=== PATIENT | male | born 1995 | race Caucasian/White ===

== ENCOUNTER 2017-10-16 01:29 | Emergency (ER) | payer BC ==
[~2017-10-16] VITALS: Ht 182.9 cm; Wt 82.1 kg
[2017-10-16 01:33] VITALS: BP 139/68
--- NOTE | 2017-10-16 01:55 | NUR ---
AMBULATED TO ER BED 2
--- NOTE | 2017-10-16 02:00 | NUR ---
Patient being evaluated by physician at bedside.
[2017-10-16] MEDS ORDERED: KETOROLAC 30 MG/ML VIAL IVP ONE (02:05)
[2017-10-16] MEDS ORDERED: NACL 0.9% 500 ML IV ONE (02:05)
[2017-10-16] MEDS ORDERED: DIAZEPAM PFS 10 MG/2 ML SYR IVP ONE (02:05)
[2017-10-16] MEDS ORDERED: ONDANSETRON 4 MG/2 ML VIAL IVP ONE (02:05)
--- NOTE | 2017-10-16 02:05 | NUR ---
PT BIB FAMILY C/O ABD CRAMPING WITH VOMITING SINCE 2099, APPROXIMATELY 9 EPISODES, REPORTS BLOOD IN EMESIS, EPIGASTRIC ABD PAIN, INTERMITTENT. PT DENIOES ANY TRAUMA. PT AMB W/O ASST TO BRP UA DONE, LAB AT BEDSIDE BLOOD AND UA SENT. SKIN IS INTACT, PINK/WARM/DRY; AAOX4, PERRL, WITH EVEN AND STEADY GAIT; LUNGS CLEAR BL, BREATHING UNLABORED; HR EVEN AND REGULAR, BL PERIPHERAL PULSES PRESENT; BS ACTIVE X4, NO TENDERNESS TO PALPATION. PT DENIES ANY FEVER, CP, SOB, OR COUGH AT THIS TIME; PT STATES 6/10 PAIN AT THIS TIME; VSS; PATIENT POSITIONED FOR COMFORT; HOB ELEVATED; BEDRAILS UP X2; BED DOWN.
[2017-10-16 02:21] LABS: HEMATOCRIT 47.8 % (36-52); MEAN CORPUSCULAR HEMOGLOBIN 29 pg (27-31); MEAN CORPUSCULAR HGB CONC 33 g/dL (33-37); MEAN CORPUSCULAR VOLUME 88 fL (80-94); PLATELET COUNT (AUTO) 277 K/uL (140-450); RED BLOOD CELL COUNT(AUTO) 5.45 MIL/uL (4.20-6.10); RED CELL DISTRIBUTION WIDTH 12.3 % (11.6-13.7)
[2017-10-16 02:35] LABS: ANION GAP 12.7 (8-16); CREATININE 1.2 mg/dL (0.7-1.3); POTASSIUM 3.7 mmol/L (3.5-5.1); WHITE BLOOD COUNT (AUTO) 17.3 K/uL (4.8-10.8)
[2017-10-16 02:37] LABS: EOSINOPHILS % (MANUAL) 1 % (0-4); LYMPHOCYTES % (MANUAL) 5 % (20-46); MONOCYTES % (MANUAL) 3 % (5-12)
[2017-10-16 02:41] LABS: ALBUMIN 4.5 g/dL (3.4-5.0); TOTAL BILIRUBIN 1.5 mg/dL (0.0-1.0)
[2017-10-16 04:13] VITALS: BP 108/61
== END 2017-10-16 04:14 | disposition home or self-care (01) ==
LOC: MED 01:29
DX: K22.6 Gastro-esophageal laceration-hemorrhage syndrome (principal); A08.4 Viral intestinal infection, unspecified; R03.0 Elevated blood-pressure reading, without diagnosis of hypertension; Z88.0 Allergy status to penicillin
CPT/HCPCS: 36415; 80053; 83690; 85025; 96361; 96374; 96375; 99284; J1885; J2405; J3360; J7030